=== PATIENT | male | born 1990 | race Caucasian/White ===

== ENCOUNTER 2017-08-13 15:28 | Emergency (ER) | payer OTHER ==
[2017-08-13 15:34] VITALS: BP 150/76
--- NOTE | 2017-08-13 15:49 | ED Physician Documentation ---
History of Present Illness - Stated complaint Stated Complaint: R ARM BLISTERS - Chief complaint Chief Complaint: Heent - History obtained from History obtained from: Patient - History of Present Illness Timing: Other (A little over a days worth of mildly painful bullae and a kurt on the right back. The night prior he was sleeping close to a space heater but was not feeling like he was getting burned or anything in his shirt was okay. Seen at [facility] yesterday and prescribed triamcinolone but it is little worse today. No body aches, sore throat, weight loss, night sweats.) Review of Systems Constitutional: denies: Fever, Chills, Myalgias, Fatigue, Weight Loss, Sweats Throat: reports: Reviewed and negative Cardiac: reports: Reviewed and negative Respiratory: reports: Reviewed and negative PD PAST MEDICAL HISTORY - Present Medications Home Medications: Ambulatory Orders Medication Instructions Recorded Confirmed Cephalexin [Keflex] 500 mg PO QID #20 capsule 08/13/17 - Allergies Allergies/Adverse Reactions: Allergies Allergy/AdvReac Type Severity Reaction Status Date / Time No Known Drug Allergies Allergy Verified 08/13/17 15:34 PD ED PE NORMAL - Vitals Vital signs reviewed: Yes - General General: Alert and oriented X 3, No acute distress - HEENT HEENT: Pharynx benign - Derm Derm: Other (There is a striated red kurt over the upper right scapula and some loose fluid-filled bullae especially on the extensor surfaces of the left upper and left forearm. The largest of which was expressed and sent for culture.) - Neuro Neuro: Alert and oriented X 3, Normal speech - Psych Psych: Normal mood, Normal affect Results - Vitals Vitals: Vital Signs - 24 hr 08/13/17 15:31 Temperature 36.8 C Heart Rate 83 Respiratory 18 Rate Blood Pressure 150/76 H O2 Saturation 96 Oxygen O2 Source Room air PD MEDICAL DECISION MAKING - ED course ED course: He has bullae on the right upper extremity, most likely a burn from sleeping close to a space heater, but he says he was not intoxicated at the time. Differential would include other causes of bullae and strep impetigo. He is started on Keflex but otherwise conservative care was advised and follow-up with dermatology if not better. Departure - Departure Disposition: 01 Home, Self Care Clinical Impression: Skin bullae on examination Condition: Good Record reviewed to determine appropriate education?: Yes Follow-Up: [facility] [Provider Group] Prescriptions: Cephalexin [Keflex] 500 mg PO QID #20 capsule Comments: Most likely as discussed this could be a mild burn from the space heater, if you are not better within the week call for a dermatology follow-up. Your blood pressure was elevated today on check into the emergency department. This does not mean that you have hypertension, it is a common phenomenon to come to the emergency department and have elevated blood pressure. I recommend that you see your primary care physician within the week to have it rechecked when you are feeling better. Discharge Date/Time: 08/13/17 15:54
== END 2017-08-13 15:54 | disposition home or self-care (01) ==
LOC: ED 15:28
DX: R23.8 Other skin changes (principal); R03.0 Elevated blood-pressure reading, without diagnosis of hypertension
CPT/HCPCS: 87070; 87205; 99283

== ENCOUNTER 2018-05-22 08:10 | Emergency (ER) | payer OTHER ==
[2018-05-22 08:17] VITALS: BP 122/77
[2018-05-22] MEDS ORDERED: DEXAMETHASONE 10 MG/ML VIAL PO STA (09:32)
[2018-05-22] MEDS ORDERED: LORATADINE 10 MG TABLET PO STA (09:32)
--- NOTE | 2018-05-22 09:36 | ED Physician Documentation ---
History of Present Illness - Stated complaint Stated Complaint: UPPER BODY RASH - Chief complaint Chief Complaint: Wound - Additonal information Additional information: hx from pt 28 y/o AD male itchy rash for 5 days no fever no oral lesions no dysuria no new food meds lotions deterg etc no camping or tick bites Review of Systems Constitutional: denies: Fever, Chills Throat: denies: Oral lesions / sores, Sore throat Cardiac: denies: Chest pain / pressure Respiratory: denies: Dyspnea GI: denies: Abdominal Pain : denies: Dysuria Skin: reports: Rash Endocrine: denies: Easy bruising / bleeding Immunocompromised: denies: Immunocompromised PD PAST MEDICAL HISTORY - Past Surgical History Past Surgical History: No - Present Medications Home Medications: Ambulatory Orders Medication Instructions Recorded Confirmed No Known Home Medications 05/22/18 05/22/18 - Allergies Allergies/Adverse Reactions: Allergies Allergy/AdvReac Type Severity Reaction Status Date / Time No Known Drug Allergies Allergy Verified 05/22/18 08:16 - Social History Does the pt smoke?: No Smoking Status: Never smoker Does the pt drink ETOH?: No Does the pt have substance abuse?: No - Immunizations Immunizations are current?: Yes PD ED PE NORMAL - Vitals Vital signs reviewed: Yes - General General: Alert and oriented X 3 - HEENT HEENT: PERRL, Moist mucous membranes, Other (no oral lesions) - Neck Neck: Supple, no meningeal sign - Cardiac Cardiac: RRR - Respiratory Respiratory: No respiratory distress, Clear bilaterally - Abdomen Abdomen: Soft, Non tender - Derm Derm: Other (approx 1-2 cm oval macules with central cleating and a larger herald patch on evan approx 3 X 5 cm, no hives, no petecchiae, no purpura, no taget lesions, no vesicles, no pustules, no rash to palms) Results - Vitals Vitals: Vital Signs - 24 hr 05/22/18 08:12 Temperature 36.9 C Heart Rate 73 Respiratory 16 Rate Blood Pressure 122/77 O2 Saturation 100 Oxygen O2 Source Room air PD MEDICAL DECISION MAKING - Sepsis Event Vital Signs: Vital Signs - 24 hr 05/22/18 08:12 Temperature 36.9 C Heart Rate 73 Respiratory 16 Rate Blood Pressure 122/77 O2 Saturation 100 Oxygen O2 Source Room air Departure - Departure Disposition: 01 Home, Self Care Clinical Impression: Pityriasis in adult Condition: Good Instructions: ED Pityriasis Rosea Follow-Up: [facility] [Provider Group] Comments: The dose of steroid given in the ER will decrease itching. You can also take claritin once a day The rash should gradually resolves, often in a week or two occasionally a month or so. Follow up at [facility]. Return if worse
[2018-05-22] MEDS ORDERED: CHERRY SYRUP 10 ML UDC PO ONE (09:43)
== END 2018-05-22 09:48 | disposition home or self-care (01) ==
LOC: ED 08:10
DX: L21.8 Other seborrheic dermatitis (principal)
CPT/HCPCS: 99282; 99283; A9270